=== PATIENT | male | born 1980 | race Caucasian/White ===

== ENCOUNTER 2024-07-28 11:55 | Emergency (ER) | payer SELFPAY ==
[2024-07-28 12:02] VITALS: BP 154/100
--- NOTE | 2024-07-28 12:54 | ED.MUSCINJ ---
HPI-Injury
General
Chief Complaint: Musculo-Skeletal Complaint
Source: patient
Exam Limitations: none
Time Seen by Provider: 07/28/24 12:36
History of Present Illness-Injury
Initial Injury comments:
43-year-old male presents complaining of left knee discomfort starting today. He was trying to come off of a low roof and he fell onto his left foot and he heard a pop in his left knee. He states his knee bent in an awkward direction. Since then
he feels very unstable. He states the pain has improved slightly since then.
Phy Exam
Physical Exam
Physical Exam:
General: Well-appearing male no acute respiratory distress
HEENT: Normocephalic atraumatic
Musculoskeletal exam: Left knee without obvious effusion. He is tender medially. There is significant laxity when performing a valgus stress. There is also some laxity with anterior and posterior drawer.
Vascular: 2+ DP pulse left foot
Neurologic: Good sensation left foot
Injury Course
Orders/Labs/Results
Orders:
Orders
07/28/24 11:58
Knee, Left 4 or More Views [CR Knee - Left 4 Or More View*] Urgent
Comment:
Reason For Exam: decreased ROM
MDM/Problems Addressed
Differential Diagnosis Includes:
Left knee discomfort. Consider sprain versus ligament injury versus fracture versus dislocation
Exam most consistent with MCL injury perhaps possible ACL/PCL injuries as well. There is no significant effusion however. X-rays of the knee were personally visualized and are negative. He has good pulses to the foot. There is no further
discomfort. His knee is quite unstable however. Will place in a knee immobilizer and have him follow up with orthopedics.
*Critical Care Note
Total Time (30-74mins, 75-104mins- exclusive of procedures): Not Applicable
ED Attending Note
-
Portions of this chart may have been created with voice recognition software.� Occasional wrong word or��sound alike� substitutions may have occurred due to the inherent limitations of voice recognition software.
Discharge Plan
Departure
Patient Disposition: Home (Routine Discharge)
Date of Disposition: 07/28/24
Time of Disposition: 12:56
Patient with high blood pressure during this ER visit?: No
Discharge Problem:
Knee MCL sprain
Instructions: Muscle and Bone Pain (DC)
Referrals:
Darci Henriquez MD [Active] -
Activity Restrictions/Additional Instructions:
Use knee immobilizer at all times. Please return here for worsening symptoms otherwise follow-up with orthopedics for further evaluation. As discussed, we are concerned about potential ligament injury.
Interventions
Interventions:
*Risk Screen - Suicide Last Done: 07/28/24 12:02
*General Assessment Last Done: 07/28/24 12:02
*Neglect/Abuse Screening Last Done: 07/28/24 12:02
*ED COVID-19 Vaccine History Last Done: 07/28/24 12:02
ED-Musculoskeletal Assessment Last Done: 07/28/24 12:20
Discharge Date and Time
Print Language: CANADIAN
[2024-07-28 13:34] VITALS: BP 137/98
== END 2024-07-28 13:52 | disposition home or self-care (01) ==
LOC: EMR 11:55
PROVIDERS: EMERGENCY PHYSICIAN Student in an Organized Health Care Education/Training Program
DX: S83.8X2A Sprain of other specified parts of left knee, initial encounter (principal); W17.89XA Other fall from one level to another, initial encounter
CPT/HCPCS: 29505; 99283; 73564